=== PATIENT | male | born 2005 | race Caucasian/White ===

== ENCOUNTER 2025-06-15 18:18 | Inpatient (IN) | payer OTHER, SELFPAY ==
[2025-06-15 18:45] VITALS: BP 138/86; PULSE 88; RESP 16; TEMP 37; O2SAT 98
[2025-06-15 18:58] VITALS: BMI 25.3
[2025-06-15 20:00] VITALS: BP 149/84; PULSE 97; RESP 18; TEMP 37.6; O2SAT 97
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
[2025-06-16 07:41] VITALS: BP 113/58; PULSE 60; RESP 16; TEMP 36.5; O2SAT 98
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
[2025-06-16 08:31] LABS: Hemoglobin A1C 134.3195 umol/L; Total Hemoglobin (HGBA1C) 4132.6215 umol/L
[2025-06-16 08:50] LABS: Alanine Aminotransferase 22 U/L (0-40); Albumin Level 5.0 g/dL (3.5-5.0); Alkaline Phosphatase 98 U/L (39-117); Anion Gap 11 (12-20); Aspartate Amino Transferase 36 U/L (5-37); Blood Urea Nitrogen 11 mg/dL (9-16); Calcium 9.6 mg/dL (8.4-10.2); Carbon Dioxide 29 mmol/L (22-29); Chloride 104 mmol/L (96-108); Cholesterol 139 mg/dL (<200); Creatinine Clr Calc Pharmacy 161.1; Estimated Glomerular Filt Rate > 60; HDL Cholesterol 50 mg/dL (>40); Potassium 3.7 mmol/L (3.3-5.1); Sodium 140 mmol/L (135-145); Total Protein 8.3 g/dL (6.5-8.0); Triglycerides 119 mg/dL (<150)
[2025-06-16 09:07] LABS: Free T4 (Free Thyroxine) 1.01 ng/dL (0.71-1.85); Thyroid Stimulating Hormone 2.46 uIU/mL (0.32-4.0)
[2025-06-16 20:00] VITALS: BP 134/70; PULSE 54; RESP 16; TEMP 37.1; O2SAT 100
[2025-06-17 08:00] VITALS: BP 140/84; PULSE 75; RESP 20; TEMP 36.6; O2SAT 99
--- NOTE | 2025-06-17 08:56 | HO.PSYCHPN ---
Subjective Subjective Reason For Visit: F32.A Diagnostics Vital Signs (24Hr): Vital Signs - 24 hr 06/16/25 20:00 Temperature 98.8 F Pulse Rate 54 Respiratory Rate 16 Blood Pressure 134/70 Pulse Oximetry 100 Oxygen Delivery Method Room Air BMI result Body Mass Index 25.3 Labs 06/16/25 07:55 Labs: Laboratory Results - last 48 hr 06/16/25 07:55 Sodium 140 Potassium 3.7 Chloride 104 Carbon Dioxide 29 Anion Gap 11 L BUN 11 Creatinine 0.89 Estim Creat Clear Calc 161.1 Estimated GFR > 60 Random Glucose 93 Estimat Average Glucose 100 Hemoglobin A1c % 5.1 Calcium 9.6 Total Bilirubin 1.2 H AST 36 ALT 22 Alkaline Phosphatase 98 Total Protein 8.3 H Albumin 5.0 Triglycerides 119 Cholesterol 139 LDL Cholesterol, Calc 66 HDL Cholesterol 50 TSH 2.46 Free T4 1.01 Medications Medications Current Medications Acetaminophen (Acetaminophen 325 Mg Tablet) 650 mg PO Q6H PRN PRN Reason: Headache/Pain, Scale 1-10 Al Hydroxide/Mg Hydroxide (Magnesium Hydrox/Alum Hydrox 30 Ml Oral.Susp) 30 ml PO Q6H PRN PRN Reason: Heartburn/Nausea Hydroxyzine HCl (Hydroxyzine Hcl 25 Mg Tablet) 25 mg PO Q6H PRN PRN Reason: mild anxiety Lorazepam (Lorazepam 1 Mg Tablet) 1 mg PO Q2H PRN PRN Reason: CIWA 8-11 Lorazepam (Lorazepam 1 Mg Tablet) 2 mg PO Q2H PRN PRN Reason: CIWA 12-15 Magnesium Hydroxide (Milk Of Magnesia 30 Ml Oral.Susp) 30 ml PO DAILY PRN PRN Reason: Constipation Nicotine (Nicotine 21 Mg Patch.Td24) 21 mg TRANSDERMA DAILY PRN PRN Reason: nicotine craving Nicotine Polacrilex (Nicotine Polacrilex 2 Mg Gum) 2 mg BUCCAL Q2H PRN PRN Reason: Nicotine Cravings Olanzapine (Olanzapine 5 Mg Tablet) 5 mg PO BID PRN PRN Reason: agitation Thiamine HCl (Thiamine Hcl 100 Mg Tablet) 100 mg PO DAILY LEIA Last Admin: 06/17/25 08:42 Dose: 100 mg Trazodone HCl (Trazodone Hcl 50 Mg Tablet) 50 mg PO BEDTIME MRX1 PRN PRN Reason: Insomnia Allergies Allergies Allergy/AdvReac Type Severity Reaction Status Date / Time No Known Allergies Allergy Verified 06/15/25 18:50 Assessment & Plan Assessment & Plan (1) Grief at loss of child: Status: Acute Code(s): F43.21 - Adjustment disorder with depressed mood; Z63.4 - Disappearance and of family member (2) Alcohol use disorder: Status: Acute Code(s): F10.90 - Alcohol use, unspecified, uncomplicated Plan Patient is a 19 year old male with no known hx of mental illness, who presented to ER d/t aggressive behavior and suicidal ideation secondary to alcohol intoxication and grieving loss of his unborn child. Plan: day notice up 06/18/25 15 minute safety checks CIWA Obtain collateral Referral to outpatient therapist Encourage groups Discharge planning Time Spent With Patient Time: Total time managing care of this patient today ____ minutes.
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
[2025-06-17 09:39] VITALS: BMI 25.6
== END 2025-06-17 11:06 | disposition home or self-care (01) | DRG 754 ==
PROVIDERS: Nurse Practitioner Psychiatric/Mental Health; Admitting Provider Psychiatry & Neurology Psychiatry; Responsible Provider Registered Nurse; Visit Provider Psychiatry & Neurology Psychiatry
DX: F43.21 Adjustment disorder with depressed mood (principal); R45.851 Suicidal ideations; F10.90 Alcohol use, unspecified, uncomplicated; Z63.4 Disappearance and death of family member
CPT/HCPCS: 36415; 80053; 80061; 83036; 84439; 84443

== ENCOUNTER → 2025-06-15 18:18 | Outpatient (BNV) | payer OTHER, SELFPAY | PROVIDERS: Admitting Provider Psychiatry & Neurology Psychiatry; Responsible Provider Registered Nurse; Visit Provider Nurse Practitioner Family | DX: F10.90 Alcohol use, unspecified, uncomplicated (principal) | CPT/HCPCS: 99221 ==

== ENCOUNTER → 2025-06-15 18:18 | Outpatient (BNV) | payer OTHER, SELFPAY | PROVIDERS: Admitting Provider Psychiatry & Neurology Psychiatry; Responsible Provider Registered Nurse; Visit Provider Registered Nurse | DX: F43.21 Adjustment disorder with depressed mood (principal); Z63.4 Disappearance and death of family member; F10.90 Alcohol use, unspecified, uncomplicated | CPT/HCPCS: 90792 ==